=== PATIENT | male | born 1950 | race Caucasian/White ===

== ENCOUNTER 2021-04-05 13:44 | Inpatient (IN) | payer BC, MEDICARE, OTHER ==
[2021-04-05] MEDS ORDERED: Aspirin 81 MG Tab.Chew PO ONE (13:48)
[2021-04-05 14:57] LABS: CORONAVIRUS COVID-19 NAA POSITIVE (NEGATIVE); INFLUENZA A NAA NEGATIVE (NEGATIVE); INFLUENZA B NAA NEGATIVE (NEGATIVE)
[2021-04-05 15:01] LABS: BLOOD UREA NITROGEN,BUN 29 mg/dL (7.0-18.0); CARBON DIOXIDE,CO2 25.6 mmol/L (21.0-32.0); CHLORIDE,CL 104 mmol/L (98-107); GLUCOSE RANDOM 135 mg/dL (74-106); POTASSIUM,K 3.8 mmol/L (3.5-5.1); SODIUM,NA 139 mmol/L (136-148)
[2021-04-05] MEDS ORDERED: Dexamethasone 4 MG Tab PO STA (15:05)
[2021-04-05] MEDS ORDERED: Iopamidol 755 MG/ML 500 ML Multipack Bottle IVPUSH STA (15:45)
[2021-04-05] MEDS ORDERED: REMDESIVIR 200 MG in Sodium Chloride 0.9% 250 ML IV ONE ×2 (16:48→17:15)
[2021-04-05] MEDS ORDERED: Benzonatate 100 MG Cap PO PRN (22:14)
[2021-04-05] MEDS ORDERED: Melatonin 3 MG Tab PO PRN (22:15)
[2021-04-05] MEDS ORDERED: Acetaminophen 325 MG Tab PO PRN (22:15)
[2021-04-05] MEDS: Enoxaparin 40 MG/0.4 ML Syringe SUBCUT SCH (23:50)
[2021-04-06 07:01] LABS: BLOOD UREA NITROGEN,BUN 26 mg/dL (7.0-18.0); CARBON DIOXIDE,CO2 22.5 mmol/L (21.0-32.0); CHLORIDE,CL 108 mmol/L (98-107); GLUCOSE RANDOM 124 mg/dL (74-106); POTASSIUM,K 4.1 mmol/L (3.5-5.1); SODIUM,NA 142 mmol/L (136-148)
[2021-04-06] MEDS: Dexamethasone 4 MG Tab PO SCH (09:37)
[2021-04-06] MEDS ORDERED: Albuterol/Ipratropium 4 GM Inhalation Spray INH PRN (10:18)
[2021-04-06] MEDS: REMDESIVIR 100 MG in Sodium Chloride 0.9% 100 ML IV SCH (12:11)
[2021-04-06] MEDS: Enoxaparin 40 MG/0.4 ML Syringe SUBCUT SCH (23:08)
[2021-04-07 06:45] LABS: BLOOD UREA NITROGEN,BUN 24 mg/dL (7.0-18.0); CARBON DIOXIDE,CO2 27.3 mmol/L (21.0-32.0); CHLORIDE,CL 109 mmol/L (98-107); GLUCOSE RANDOM 95 mg/dL (74-106); POTASSIUM,K 4.2 mmol/L (3.5-5.1); SODIUM,NA 144 mmol/L (136-148)
[2021-04-07] MEDS: Dexamethasone 4 MG Tab PO SCH (08:01)
[2021-04-07] MEDS ORDERED: guaiFENesin/Dextromethorphan 100-10 MG/5 ML Soln 10 ML Cup PO PRN (11:42)
[2021-04-07] MEDS ORDERED: Docusate Sodium 100 MG Cap PO PRN (11:42)
[2021-04-07] MEDS ORDERED: Albuterol/Ipratropium 3.0-0.5 MG/3 ML Neb Soln NEB PRN (11:43)
[2021-04-07] MEDS: REMDESIVIR 100 MG in Sodium Chloride 0.9% 100 ML IV SCH (13:04)
[2021-04-07] MEDS: Enoxaparin 40 MG/0.4 ML Syringe SUBCUT SCH (20:37)
[2021-04-08 08:02] LABS: BLOOD UREA NITROGEN,BUN 22 mg/dL (7.0-18.0); CARBON DIOXIDE,CO2 24.4 mmol/L (21.0-32.0); CHLORIDE,CL 108 mmol/L (98-107); GLUCOSE RANDOM 89 mg/dL (74-106); POTASSIUM,K 3.8 mmol/L (3.5-5.1); SODIUM,NA 145 mmol/L (136-148)
[2021-04-08] MEDS: Dexamethasone 4 MG Tab PO SCH (08:46)
[2021-04-08] MEDS: REMDESIVIR 100 MG in Sodium Chloride 0.9% 100 ML IV SCH (13:48)
[2021-04-08] MEDS: Enoxaparin 40 MG/0.4 ML Syringe SUBCUT SCH (20:22)
[2021-04-09 07:45] LABS: BLOOD UREA NITROGEN,BUN 19 mg/dL (7.0-18.0); CARBON DIOXIDE,CO2 25.7 mmol/L (21.0-32.0); CHLORIDE,CL 108 mmol/L (98-107); GLUCOSE RANDOM 88 mg/dL (74-106); SODIUM,NA 144 mmol/L (136-148)
[2021-04-09] MEDS: Dexamethasone 4 MG Tab PO SCH (08:39)
[2021-04-09] MEDS: REMDESIVIR 100 MG in Sodium Chloride 0.9% 100 ML IV SCH (13:10)
== END 2021-04-09 14:00 | disposition home or self-care (01) | DRG 177 ==
LOC: MW.ED 13:44 → MW.MS 16:47
PROVIDERS: ADMIT Internal Medicine; ATTEND Internal Medicine
PROC: XW033E5 Introduction of Remdesivir Anti-infective into Peripheral Vein, Percutaneous Approach, New Technology Group 5 (ICD-10-PCS; principal; 2021-04-05)
PROC: 3E0DX3Z Introduction of Anti-inflammatory into Mouth and Pharynx, External Approach (ICD-10-PCS; 2021-04-05)
DX: U07.1 COVID-19 (principal); J96.01 Acute respiratory failure with hypoxia; J12.82 Pneumonia due to coronavirus disease 2019; E87.2 Acidosis; J43.9 Emphysema, unspecified; I10 Essential (primary) hypertension; K59.00 Constipation, unspecified; E83.42 Hypomagnesemia; Z88.0 Allergy status to penicillin; Z87.891 Personal history of nicotine dependence
CPT/HCPCS: 0240U; 36415; 71045; 71275; 80053; 83605; 83735; 83880; 84145; 84484; 85025; 85610; 85652; 86140; 87040; 93005; 97161; 99285; A9270-GY; J1650; J7050; J8540; Q9967